=== PATIENT | male | born 1980 | race Caucasian/White ===

== ENCOUNTER 2021-12-08 15:20 | Inpatient (IN) | payer OTHER ==
[~2021-12-08] VITALS: Ht 177.8 cm; Wt 77.4 kg
[2021-12-08] MEDS ORDERED: ASPIRIN 325 MG TABLET PO ONE (15:45)
[2021-12-08] MEDS ORDERED: MORPHINE SULFATE 4 MG/ML INJ. IV/SQ PRN (15:45)
[2021-12-08] MEDS ORDERED: NITROGLYCERIN SUBLINGUAL 0.4 MG BOTTLE OF 25. SL PRN ×2 (15:45→19:00)
--- NOTE | 2021-12-08 15:48 | PHYS DOC ---
Past Medical History Past Medical History: High Cholesterol, Hypertension, TN Past Surgical History: Tonsillectomy Additional Past Surgical Histo: CARDIAC CATH Smoking Status: Former Smoker Alcohol Use: None General Adult EDM: Chief Complaint: CHEST PAIN HPI: HPI: Patient is a 41 year old male with history of TN, no stents, hypertension, high cholesterol, HTN presenting to the ED today from [facility] with cra officer complaining of 7 out of 10 sharp intermittent left- sided sharp pain that began at 1145 this morning. Patient is also complaining of dizziness and lightheadedness with the chest pain. Denies anything specifically exacerbating or relieving the pain. Review of Systems: Review of Systems: Constitutional: Denies fever or chills. [] Eyes: Denies change in visual acuity. [] HENT: Denies nasal congestion or sore throat. [] Respiratory: Denies cough or shortness of breath. [] Cardiovascular: Reports left-sided chest pain GI: Denies abdominal pain, nausea, vomiting, bloody stools or diarrhea. [] : Denies dysuria. [] Musculoskeletal: Denies back pain or joint pain. [] Integument: Denies rash. [] Neurologic: Reports dizziness, lightheadedness denies headache, focal weakness or sensory changes. [] [] Psychiatric: Denies depression or anxiety. [] Heart Score: C/O Chest Pain: Yes HEART Score for Chest Pain: HEART Score for Chest Pain Response (Comments) Value History Slighlty/Non-Suspicious 0 ECG Normal 0 Age < 45 0 Risk Factors >3 Risk Factors or Hx CAD 2 Troponin < Normal Limit 0 Total 2 Risk Factors: Risk Factors: DM, Current or recent (<one month) smoker, HTN, HLP, family history of CAD, obesity. Risk Scores: Score 0 - 3: 2.5% MACE over next 6 weeks - Discharge Home Score 4 - 6: 20.3% MACE over next 6 weeks - Admit for Clinical Observation Score 7 - 10: 72.7% MACE over next 6 weeks - Early Invasive Strategies Current Medications: Current Medications Medications (Trade) Dose Ordered Sig/Dorinda Start Time Stop Time Status Last Admin Dose Admin Aspirin (Sheila Aspirin) 325 mg 1X ONCE 12/08/21 15:45 12/08/21 15:46 DC Morphine Sulfate (Morphine Sulfate) 4 mg PRN Q15MIN PRN 12/08/21 15:45 12/09/21 15:44 Nitroglycerin (Nitrostat) 0.4 mg PRN Q5MIN PRN 12/08/21 15:45 12/09/21 15:44 Allergies: Allergies: Allergies Coded Allergies Type Severity Reaction Last Updated Verified Penicillins Allergy Intermediate UNKNOWN 12/08/21 Yes Physical Exam: PE: Constitutional: Well developed, well nourished, no acute distress, non-toxic appearance. [] HENT: Normocephalic, atraumatic, bilateral external ears normal, oropharynx moist, no oral exudates, nose normal. [] Eyes: PERRLA, EOMI, conjunctiva normal, no discharge. [] Neck: Normal range of motion, no tenderness, supple, no stridor. [] Cardiovascular:Heart rate regular rhythm, no murmur [] Lungs & Thorax: Bilateral breath sounds clear to auscultation [] Abdomen: Bowel sounds normal, soft, no tenderness, no masses, no pulsatile masses. [] Skin: Warm, dry, no erythema, no rash. [] Back: No tenderness, no CVA tenderness. [] Extremities: No tenderness, no cyanosis, no clubbing, ROM intact, no edema. [] Neurologic: Alert and oriented X 3, normal motor function, normal sensory function, no focal deficits noted. [] Psychologic: Affect normal, judgement normal, mood normal. [] Current Patient Data: Vital Signs: Vital Signs Date Time Temp Pulse Resp B/P (MAP) Pulse Ox O2 Delivery O2 Flow Rate FiO2 12/08/21 15:20 98.6 74 19 138/85 (102) 100 Room Air 98.6 EKG: EK interpreted by Dr. Linton sinus rhythm heart rate 73 no STEMI [] Radiology/Procedures: Radiology/Procedures: []PROCEDURE: PORTABLE CHEST 1V AP chest. HISTORY: Chest pain AP view was taken of the chest. Lungs are clear. Heart is normal in size. There is no pleural effusion. IMPRESSION: 1. No acute chest disease. Electronically signed by: Canelo Cooper MD (12/08/2021 4:04 PM) [id number] DICTATED and SIGNED BY: CANELO COOPER MD DATE: 12/08/21 2260 Course & Med Decision Making: Course & Med Decision Making Pertinent Labs and Imaging studies reviewed. (See chart for details) This a 41-year-old male patient presented to the ED today with complaints of left-sided chest pain, dizziness and lightheadedness that began at 1145 this morning. EKG is negative, initial high-sensitivity troponin is negative, CBC CMP chest x- ray negative. UA negative. Spoke to Dr. Nichols who accepted patient for admission, routine consult placed for cardiology Jonny Disclaimer: Jonny Disclaimer: This electronic medical record was generated, in whole or in part, using a voice recognition dictation system. Departure Departure Impression: Primary Impression: Chest pain Qualified Codes: R07.9 - Chest pain, unspecified Disposition: ADMITTED INPATIENT Condition: STABLE BHAKTI JUÁREZ VOCAL ARTIST Dec 08, 2021 15:48
--- NOTE | 2021-12-08 16:06 | RAD ---
AP chest. HISTORY: Chest pain AP view was taken of the chest. Lungs are clear. Heart is normal in size. There is no pleural effusio n. IMPRESSION: 1. No acute chest disease. Electronically signed by: Canelo Cooper MD (12/08/2021 4:04 PM) [id number]
[2021-12-08 16:12] LABS: BASO # 0.1 x10^3/uL (0.0-0.2); BASO % 1 % (0-3); EOS # 0.3 x10^3/uL (0.0-0.7); EOS % 4 % (0-3); HEMATOCRIT 41.6 % (39.0-53.0); LYMPH # 2.3 x10^3/uL (1.0-4.8); LYMPH % 29 % (24-48); MEAN CORPUSCULAR HEMOGLOBIN 32 pg (25-35); MEAN CORPUSCULAR HGB CONC 34 g/dL (31-37); MEAN CORPUSCULAR VOLUME 93 fL (79-100); MONO # 0.9 x10^3/uL (0.0-1.1); MONO % 11 % (0-9); NEUT # 4.3 x10^3/uL (1.8-7.7); NEUT % 55 % (31-73); PLATELET COUNT 229 x10^3/uL (140-400); RED BLOOD COUNT 4.46 x10^6/uL (4.30-5.70); RED CELL DISTRIBUTION WIDTH 13.1 % (11.5-14.5); WHITE BLOOD COUNT 7.9 x10^3/uL (4.0-11.0)
[2021-12-08 16:23] LABS: CALCIUM 9.2 mg/dL (8.5-10.1); CREATININE 0.9 mg/dL (0.7-1.3); GFR 92.5; POTASSIUM 4.1 mmol/L (3.5-5.1)
[2021-12-08 16:30] LABS: ALBUMIN 4.6 g/dL (3.4-5.0); ALBUMIN/GLOBULIN RATIO 1.5 (1.0-1.7); MAGNESIUM 1.8 mg/dL (1.8-2.4); TOTAL BILIRUBIN 0.5 mg/dL (0.2-1.0); TOTAL PROTEIN 7.7 g/dL (6.4-8.2)
[2021-12-08 17:32] LABS: BACTERIA,URINE 0 /HPF (0-FEW); RBC,URINE 0 /HPF (0-2); WBC,URINE 0 /HPF (0-4)
[2021-12-08] MEDS ORDERED: ONDANSETRON PF 4 MG/2 ML VIAL. IVP PRN (19:00)
[2021-12-08] MEDS ORDERED: MORPHINE SULFATE 4 MG/ML INJ. IVP PRN (19:00)
[2021-12-08] MEDS ORDERED: ACETAMINOPHEN 325 MG TABLET. PO PRN (19:00)
--- NOTE | 2021-12-08 19:46 | HP ---
DATE OF SERVICE: 12/08/2021 ADMIT DATE: 12/08/2021 CHIEF COMPLAINT: Chest pain. HISTORY OF PRESENT ILLNESS: The patient is a pleasant 41-year-old male who presents to the ER with chest pain. He has been short of breath. He has had some lightheadedness. He states he has 2 old heart attacks, but denies having any stents. He was catheterized once in the past, but did not have a cardiac stent. He states he also had another heart attack in 10/2018. I discussed the case with ER physician. We are going to admit the patient and consult Cardiology. PAST MEDICAL HISTORY: Myocardial infarction, CAD, hypertension, hyperlipidemia, tonsillectomy, cardiac catheterization, but no stents, previous tobacco abuse. ALLERGIES: PENICILLIN. FAMILY HISTORY: Diabetes. SOCIAL HISTORY: Does not drink or take drugs. He smokes. 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 He is currently in [place] the [place] 4 years. States he gets out in 8 months. MEDICATIONS: Reviewed, please refer to the MRAD. REVIEW OF SYSTEMS: GENERAL: No history of weight change, weakness or fevers. SKIN: No bruising, hair changes or rashes. EYES: No blurred, double or loss of vision. NOSE AND THROAT: No history of nosebleeds, hoarseness or sore throat. HEART: He complains of chest pain. LUNGS: Denies cough, hemoptysis, wheezing or shortness of breath. GASTROINTESTINAL: Denies changes in appetite, nausea, vomiting, diarrhea or constipation. GENITOURINARY: No history of frequency, urgency, hesitancy or nocturia. NEUROLOGIC: Denies history of numbness, tingling, tremor or weakness. PSYCHIATRIC: No history of panic, anxiety or depression. ENDOCRINE: No history of heat or cold intolerance, polyuria or polydipsia. EXTREMITIES: Denies muscle weakness, joint pain, pain on walking or stiffness. PHYSICAL EXAMINATION: VITALS: Within normal limits and are stable. GENERAL: No apparent distress. Alert and oriented. HEENT: Normal cephalic atraumatic, external auditory canals are patent EYES: Extraocular muscles are intact, pupils are equally round and reactive to light and accommodation MUSCULOSKELETAL: Well developed, well nourished, good range of motion ENDOCRINE: No thyromegaly was palpated LYMPHATICS: No cervical chain or axillary nodes were noted HEMATOPOIETIC: No bruising NECK: Supple, no JVD, no thyromegaly was noted. LUNGS: Clear to auscultation in all lung gunderson without rhonchi or wheezing. HEART: RRR, S1, S2 present. Peripheral pulses intact, no obvious murmurs were noted. ABDOMEN: Soft, nontender. Positive bowel sounds no organomegaly, normal bowel sounds. EXTREMITIES: Without any cyanosis, clubbing, or edema. Pedal pulses intact, Homans sign is negative. NEUROLOGIC: Normal speech, normal tone. A and O x 3, moves all extremities, no obvious focal deficits. PSYCHIATRIC: Normal affect, normal mood. Stable. SKIN: No ulcerations or rashes, good skin turgor, no jaundice. VASCULAR: Good capillary refill, neurovascular bundle appears to be intact. LABORATORY DATA: Troponin is 5. ASSESSMENT AND PLAN: Chest pain in a middle-aged male who states he has previous coronary artery disease. He has been admitted. We will check serial enzymes, serial EKGs. Consult Cardiology. Cardiac monitoring, home meds, DVT prophylaxis. Full code. KELLY/KATRIN/[facility] [place] DR: KELLY/garcía TID: [id number]
[2021-12-08 22:10] VITALS: BP 155/80
[2021-12-09] MEDS ORDERED: LISI20TA18 PO (00:52)
[2021-12-09] MEDS ORDERED: CARV6.2511 PO (00:52)
[2021-12-09] MEDS ORDERED: MAGN100T6 PO (00:52)
[2021-12-09] MEDS ORDERED: NAPR-514 PO (00:52)
[2021-12-09] MEDS ORDERED: ASPI-630 PO (00:52)
[2021-12-09] MEDS ORDERED: CALC200T3 PO (00:52)
[2021-12-09] MEDS ORDERED: ATOR20TA58 PO (00:52)
[2021-12-09 02:24] LABS: BASO # 0.1 x10^3/uL (0.0-0.2); BASO % 1 % (0-3); EOS # 0.4 x10^3/uL (0.0-0.7); EOS % 5 % (0-3); HEMOGLOBIN 13.7 g/dL (13.0-17.5); LYMPH # 2.5 x10^3/uL (1.0-4.8); LYMPH % 35 % (24-48); MEAN CORPUSCULAR HEMOGLOBIN 32 pg (25-35); MEAN CORPUSCULAR HGB CONC 33 g/dL (31-37); MEAN CORPUSCULAR VOLUME 95 fL (79-100); MONO # 0.8 x10^3/uL (0.0-1.1); MONO % 11 % (0-9); NEUT # 3.5 x10^3/uL (1.8-7.7); NEUT % 49 % (31-73); PLATELET COUNT 218 x10^3/uL (140-400); RED BLOOD COUNT 4.34 x10^6/uL (4.30-5.70); RED CELL DISTRIBUTION WIDTH 12.7 % (11.5-14.5); WHITE BLOOD COUNT 7.3 x10^3/uL (4.0-11.0)
[2021-12-09 02:50] VITALS: BP 112/63
[2021-12-09 02:50] LABS: CALCIUM 9.4 mg/dL (8.5-10.1); CREATININE 0.8 mg/dL (0.7-1.3); POTASSIUM 4.5 mmol/L (3.5-5.1)
--- NOTE | 2021-12-09 06:40 | NUR ---
Just notified 's answering service about Consult
[2021-12-09 07:00] VITALS: BP 127/70
--- NOTE | 2021-12-09 09:27 | PDOC2 ---
CONSULT Date of Consult Date of Consult DATE: 12/09/21 TIME: 09:27 Reason for Consult Reason for Consult: Chest pain Referring Physician Referring Physician: Dr. Nichols Identification/Chief Complaint Chief Complaint Chest pain Source Source: Chart review, Patient History of Present Illness Reason for Visit: 41-year-old male inmate of [facility] presented complaining of left-sided chest pain that he described as sharp in nature, 7/10 severity that started at 11 AM yesterday. He denied any association with exertion or food intake. He also denied any orthopnea/PND, palpitations or syncope. He stated that he has been under a lot of stress due to his personal situation and family issues. He apparently was told he had heart attacks twice but cardiac catheterization in 2018 in [facility] did not show any significant coronary artery stenosis needing intervention. Past Medical History Past Medical History Myocardial infarction in the past without any PCI/stent Hypertension Hyperlipidemia Past Surgical History Past Surgical History Tonsillectomy Family History Family History Positive for premature coronary artery disease Social History Social History Quit smoking several years ago and denied any alcohol or drug use Current Problem List Problem List Problems Medical Problems: (1) Chest pain Status: Acute Current Medications Current Medications Current Medications Aspirin (Sheila Aspirin) 325 mg 1X ONCE PO Last administered on 12/08/21at 15:52; Start 12/08/21 at 15:45; Stop 12/08/21 at 15:46; Status DC Nitroglycerin (Nitrostat) 0.4 mg PRN Q5MIN PRN SL CP RATING > 1/10 Last administered on 12/08/21at 16:02; Start 12/08/21 at 15:45; Stop 12/08/21 at 19:00; Status DC Morphine Sulfate (Morphine Sulfate) 4 mg PRN Q15MIN PRN IV/SQ PAIN GREATER THAN 3/10; Start 12/08/21 at 15:45; Stop 12/08/21 at 18:59; Status DC Ondansetron HCl (Zofran) 4 mg PRN Q8HRS PRN IVP NAUSEA/VOMITING; Start 12/08/21 at 19:00; Stop 12/09/21 at 18:59 Morphine Sulfate (Morphine Sulfate) 4 mg PRN Q2HR PRN IVP PAIN; Start 12/08/21 at 19:00; Stop 12/09/21 at 18:59 Acetaminophen (Tylenol) 650 mg PRN Q4HRS PRN PO FEVER > 100.3'F; Start 12/08/21 at 19:00; Stop 12/09/21 at 18:59 Nitroglycerin (Nitrostat) 0.4 mg PRN Q5MIN PRN SL CHEST PAIN; Start 12/08/21 at 19:00; Stop 12/09/21 at 18:59 Active Scripts Active Reported Magnesium Citrate 100 Mg Tablet 400 Mg PO QHS Aspirin 81 Mg Tab.chew 1 Tab PO DAILY Carvedilol (Carvedilol) 6.25 Mg Tablet 6.25 Mg PO DAILY Lisinopril 20 Mg Tablet 1 Tab PO DAILY Tums (Calcium Carbonate) 200 Mg Tab.chew 400 Mg PO PRN BID PRN Atorvastatin Calcium 20 Mg Tablet 20 Mg PO HS Naproxen 500 Mg Tablet 500 Mg PO PRN BID PRN Allergies Allergies: Coded Allergies: Penicillins (Verified Allergy, Intermediate, 12/09/21) ROS PSYCHOLOGICAL ROS: No: Hallucinations Eyes: No Loss of vision HEENT: No: Epistaxis Respiratory: No: Hemoptysis Cardiovascular: yes Chest Pain Gastrointestinal: No Vomiting, No Diarrhea Genitourinary: No Hematuria Neurological: No Seizures Skin: No Rash Physical Exam General: Alert, Oriented X3 HEENT: Atraumatic Lungs: Clear to auscultation Heart: Regular rate Abdomen: Soft, No tenderness Extremities: No edema Neuro: Normal speech Vitals VITALS Vital Signs Date Time Temp Pulse Resp B/P (MAP) Pulse Ox O2 Delivery O2 Flow Rate FiO2 12/09/21 07:00 97.7 57 19 127/70 (89) 99 Room Air 97.7 Labs Labs Laboratory Tests Test 12/08/21 15:50 12/08/21 17:00 12/08/21 19:10 12/09/21 02:00 White Blood Count 7.9 x10^3/uL (4.0-11.0) 7.3 x10^3/uL (4.0-11.0) Red Blood Count 4.46 x10^6/uL (4.30-5.70) 4.34 x10^6/uL (4.30-5.70) Hemoglobin 14.0 g/dL (13.0-17.5) 13.7 g/dL (13.0-17.5) Hematocrit 41.6 % (39.0-53.0) 41.0 % (39.0-53.0) Mean Corpuscular Volume 93 fL (79-100) 95 fL (79-100) Mean Corpuscular Hemoglobin 32 pg (25-35) 32 pg (25-35) Mean Corpuscular Hemoglobin Concent 34 g/dL (31-37) 33 g/dL (31-37) Red Cell Distribution Width 13.1 % (11.5-14.5) 12.7 % (11.5-14.5) Platelet Count 229 x10^3/uL (140-400) 218 x10^3/uL (140-400) Neutrophils (%) (Auto) 55 % (31-73) 49 % (31-73) Lymphocytes (%) (Auto) 29 % (24-48) 35 % (24-48) Monocytes (%) (Auto) 11 % (0-9) 11 % (0-9) Eosinophils (%) (Auto) 4 % (0-3) 5 % (0-3) Basophils (%) (Auto) 1 % (0-3) 1 % (0-3) Neutrophils # (Auto) 4.3 x10^3/uL (1.8-7.7) 3.5 x10^3/uL (1.8-7.7) Lymphocytes # (Auto) 2.3 x10^3/uL (1.0-4.8) 2.5 x10^3/uL (1.0-4.8) Monocytes # (Auto) 0.9 x10^3/uL (0.0-1.1) 0.8 x10^3/uL (0.0-1.1) Eosinophils # (Auto) 0.3 x10^3/uL (0.0-0.7) 0.4 x10^3/uL (0.0-0.7) Basophils # (Auto) 0.1 x10^3/uL (0.0-0.2) 0.1 x10^3/uL (0.0-0.2) D-Dimer (Mercedez) < 0.27 ug/mlFEU Sodium Level 139 mmol/L (136-145) 140 mmol/L (136-145) Potassium Level 4.1 mmol/L (3.5-5.1) 4.5 mmol/L (3.5-5.1) Chloride Level 104 mmol/L (98-107) 104 mmol/L (98-107) Carbon Dioxide Level 27 mmol/L (21-32) 29 mmol/L (21-32) Anion Gap 8 (6-14) 7 (6-14) Blood Urea Nitrogen 15 mg/dL (8-26) 14 mg/dL (8-26) Creatinine 0.9 mg/dL (0.7-1.3) 0.8 mg/dL (0.7-1.3) Estimated GFR (Cockcroft-Gault) 92.5 106.0 BUN/Creatinine Ratio 17 (6-20) Glucose Level 80 mg/dL (70-99) 81 mg/dL (70-99) Calcium Level 9.2 mg/dL (8.5-10.1) 9.4 mg/dL (8.5-10.1) Magnesium Level 1.8 mg/dL (1.8-2.4) Total Bilirubin 0.5 mg/dL (0.2-1.0) Aspartate Amino Transf (AST/SGOT) 16 U/L (15-37) Alanine Aminotransferase (ALT/SGPT) 25 U/L (16-63) Alkaline Phosphatase 54 U/L (46-116) Troponin I High Sensitivity 5 ng/L (4-75) 5 ng/L (4-75) 5 ng/L (4-75) ZR-Zvh-G-Type Natriuretic Peptide 40 pg/mL (0-124) Total Protein 7.7 g/dL (6.4-8.2) Albumin 4.6 g/dL (3.4-5.0) Albumin/Globulin Ratio 1.5 (1.0-1.7) Urine Collection Type Unknown Urine Color (Auto) Light yellow Urine Turbidity Clear Urine pH (Auto) 6.5 (<5.0-8.0) Urine Specific [place] 1.013 (1.000-1.030) Urine Protein (Auto) Negative mg/dL (Negative) Urine Glucose (Auto)(UA) Negative mg/dL (Negative) Urine Ketones (Auto) Trace mg/dL (Negative) Urine Blood (Auto) Negative (Negative) Urine Nitrite Negative (Negative) Urine Bilirubin (Auto) Negative (Negative) Urine Urobilinogen (Auto) Normal mg/dL (Normal) Urine Leukocyte Esterase (Auto) Negative (Negative) Urine RBC 0 /HPF (0-2) Urine WBC 0 /HPF (0-4) Urine Bacteria 0 /HPF (0-FEW) Laboratory Tests Test 12/08/21 15:50 12/08/21 17:00 12/08/21 19:10 12/09/21 02:00 White Blood Count 7.9 x10^3/uL (4.0-11.0) 7.3 x10^3/uL (4.0-11.0) Red Blood Count 4.46 x10^6/uL (4.30-5.70) 4.34 x10^6/uL (4.30-5.70) Hemoglobin 14.0 g/dL (13.0-17.5) 13.7 g/dL (13.0-17.5) Hematocrit 41.6 % (39.0-53.0) 41.0 % (39.0-53.0) Mean Corpuscular Volume 93 fL (79-100) 95 fL (79-100) Mean Corpuscular Hemoglobin 32 pg (25-35) 32 pg (25-35) Mean Corpuscular Hemoglobin Concent 34 g/dL (31-37) 33 g/dL (31-37) Red Cell Distribution Width 13.1 % (11.5-14.5) 12.7 % (11.5-14.5) Platelet Count 229 x10^3/uL (140-400) 218 x10^3/uL (140-400) Neutrophils (%) (Auto) 55 % (31-73) 49 % (31-73) Lymphocytes (%) (Auto) 29 % (24-48) 35 % (24-48) Monocytes (%) (Auto) 11 % (0-9) 11 % (0-9) Eosinophils (%) (Auto) 4 % (0-3) 5 % (0-3) Basophils (%) (Auto) 1 % (0-3) 1 % (0-3) Neutrophils # (Auto) 4.3 x10^3/uL (1.8-7.7) 3.5 x10^3/uL (1.8-7.7) Lymphocytes # (Auto) 2.3 x10^3/uL (1.0-4.8) 2.5 x10^3/uL (1.0-4.8) Monocytes # (Auto) 0.9 x10^3/uL (0.0-1.1) 0.8 x10^3/uL (0.0-1.1) Eosinophils # (Auto) 0.3 x10^3/uL (0.0-0.7) 0.4 x10^3/uL (0.0-0.7) Basophils # (Auto) 0.1 x10^3/uL (0.0-0.2) 0.1 x10^3/uL (0.0-0.2) D-Dimer (Mercedez) < 0.27 ug/mlFEU Sodium Level 139 mmol/L (136-145) 140 mmol/L (136-145) Potassium Level 4.1 mmol/L (3.5-5.1) 4.5 mmol/L (3.5-5.1) Chloride Level 104 mmol/L (98-107) 104 mmol/L (98-107) Carbon Dioxide Level 27 mmol/L (21-32) 29 mmol/L (21-32) Anion Gap 8 (6-14) 7 (6-14) Blood Urea Nitrogen 15 mg/dL (8-26) 14 mg/dL (8-26) Creatinine 0.9 mg/dL (0.7-1.3) 0.8 mg/dL (0.7-1.3) Estimated GFR (Cockcroft-Gault) 92.5 106.0 BUN/Creatinine Ratio 17 (6-20) Glucose Level 80 mg/dL (70-99) 81 mg/dL (70-99) Calcium Level 9.2 mg/dL (8.5-10.1) 9.4 mg/dL (8.5-10.1) Magnesium Level 1.8 mg/dL (1.8-2.4) Total Bilirubin 0.5 mg/dL (0.2-1.0) Aspartate Amino Transf (AST/SGOT) 16 U/L (15-37) Alanine Aminotransferase (ALT/SGPT) 25 U/L (16-63) Alkaline Phosphatase 54 U/L (46-116) Troponin I High Sensitivity 5 ng/L (4-75) 5 ng/L (4-75) 5 ng/L (4-75) MK-Yje-T-Type Natriuretic Peptide 40 pg/mL (0-124) Total Protein 7.7 g/dL (6.4-8.2) Albumin 4.6 g/dL (3.4-5.0) Albumin/Globulin Ratio 1.5 (1.0-1.7) Urine Collection Type Unknown Urine Color (Auto) Light yellow Urine Turbidity Clear Urine pH (Auto) 6.5 (<5.0-8.0) Urine Specific [place] 1.013 (1.000-1.030) Urine Protein (Auto) Negative mg/dL (Negative) Urine Glucose (Auto)(UA) Negative mg/dL (Negative) Urine Ketones (Auto) Trace mg/dL (Negative) Urine Blood (Auto) Negative (Negative) Urine Nitrite Negative (Negative) Urine Bilirubin (Auto) Negative (Negative) Urine Urobilinogen (Auto) Normal mg/dL (Normal) Urine Leukocyte Esterase (Auto) Negative (Negative) Urine RBC 0 /HPF (0-2) Urine WBC 0 /HPF (0-4) Urine Bacteria 0 /HPF (0-FEW) Assessment/Plan Assessment/Plan 1. Chest pain with atypical features: Myocardial infarction has been ruled out. Patient stated that he had cardiac catheterization in 2018 and was told he did not have any significant stenosis. Check 2D echo to assess LV systolic function. Ischemic evaluation could be considered as an outpatient. 2. Hypertension: Well-controlled 3. Hyperlipidemia: Continue statin therapy Thank you for your consultation ROCHELLE CHILDERS MD Dec 09, 2021 09:27
[2021-12-09] MEDS ORDERED: DIPH25CA58 PO (10:27)
--- NOTE | 2021-12-09 10:30 | PDOC3 ---
Discharge Summary Visit Information Date of Admission: Dec 08, 2021 Date of Discharge: Dec 09, 2021 Final Diagnosis angina, ACS ruled out CAD, prior cath htn lipids insomnia Problems Medical Problems: (1) Chest pain Status: Acute Brief Hospital Course Allergies Allergies Coded Allergies Type Severity Reaction Last Updated Verified Penicillins Allergy Intermediate 12/09/21 Yes Vital Signs Vital Signs Date Time Temp Pulse Resp B/P (MAP) Pulse Ox O2 Delivery O2 Flow Rate FiO2 12/09/21 08:00 Room Air 12/09/21 07:00 97.7 57 19 127/70 (89) 99 97.7 Lab Results Laboratory Tests Test 12/08/21 15:50 12/08/21 17:00 12/08/21 19:10 12/09/21 02:00 White Blood Count 7.9 x10^3/uL (4.0-11.0) 7.3 x10^3/uL (4.0-11.0) Red Blood Count 4.46 x10^6/uL (4.30-5.70) 4.34 x10^6/uL (4.30-5.70) Hemoglobin 14.0 g/dL (13.0-17.5) 13.7 g/dL (13.0-17.5) Hematocrit 41.6 % (39.0-53.0) 41.0 % (39.0-53.0) Mean Corpuscular Volume 93 fL (79-100) 95 fL (79-100) Mean Corpuscular Hemoglobin 32 pg (25-35) 32 pg (25-35) Mean Corpuscular Hemoglobin Concent 34 g/dL (31-37) 33 g/dL (31-37) Red Cell Distribution Width 13.1 % (11.5-14.5) 12.7 % (11.5-14.5) Platelet Count 229 x10^3/uL (140-400) 218 x10^3/uL (140-400) Neutrophils (%) (Auto) 55 % (31-73) 49 % (31-73) Lymphocytes (%) (Auto) 29 % (24-48) 35 % (24-48) Monocytes (%) (Auto) 11 % (0-9) 11 % (0-9) Eosinophils (%) (Auto) 4 % (0-3) 5 % (0-3) Basophils (%) (Auto) 1 % (0-3) 1 % (0-3) Neutrophils # (Auto) 4.3 x10^3/uL (1.8-7.7) 3.5 x10^3/uL (1.8-7.7) Lymphocytes # (Auto) 2.3 x10^3/uL (1.0-4.8) 2.5 x10^3/uL (1.0-4.8) Monocytes # (Auto) 0.9 x10^3/uL (0.0-1.1) 0.8 x10^3/uL (0.0-1.1) Eosinophils # (Auto) 0.3 x10^3/uL (0.0-0.7) 0.4 x10^3/uL (0.0-0.7) Basophils # (Auto) 0.1 x10^3/uL (0.0-0.2) 0.1 x10^3/uL (0.0-0.2) D-Dimer (Mercedez) < 0.27 ug/mlFEU Sodium Level 139 mmol/L (136-145) 140 mmol/L (136-145) Potassium Level 4.1 mmol/L (3.5-5.1) 4.5 mmol/L (3.5-5.1) Chloride Level 104 mmol/L (98-107) 104 mmol/L (98-107) Carbon Dioxide Level 27 mmol/L (21-32) 29 mmol/L (21-32) Anion Gap 8 (6-14) 7 (6-14) Blood Urea Nitrogen 15 mg/dL (8-26) 14 mg/dL (8-26) Creatinine 0.9 mg/dL (0.7-1.3) 0.8 mg/dL (0.7-1.3) Estimated GFR (Cockcroft-Gault) 92.5 106.0 BUN/Creatinine Ratio 17 (6-20) Glucose Level 80 mg/dL (70-99) 81 mg/dL (70-99) Calcium Level 9.2 mg/dL (8.5-10.1) 9.4 mg/dL (8.5-10.1) Magnesium Level 1.8 mg/dL (1.8-2.4) Total Bilirubin 0.5 mg/dL (0.2-1.0) Aspartate Amino Transf (AST/SGOT) 16 U/L (15-37) Alanine Aminotransferase (ALT/SGPT) 25 U/L (16-63) Alkaline Phosphatase 54 U/L (46-116) Troponin I High Sensitivity 5 ng/L (4-75) 5 ng/L (4-75) 5 ng/L (4-75) MA-Wac-T-Type Natriuretic Peptide 40 pg/mL (0-124) Total Protein 7.7 g/dL (6.4-8.2) Albumin 4.6 g/dL (3.4-5.0) Albumin/Globulin Ratio 1.5 (1.0-1.7) Urine Collection Type Unknown Urine Color (Auto) Light yellow Urine Turbidity Clear Urine pH (Auto) 6.5 (<5.0-8.0) Urine Specific [place] 1.013 (1.000-1.030) Urine Protein (Auto) Negative mg/dL (Negative) Urine Glucose (Auto)(UA) Negative mg/dL (Negative) Urine Ketones (Auto) Trace mg/dL (Negative) Urine Blood (Auto) Negative (Negative) Urine Nitrite Negative (Negative) Urine Bilirubin (Auto) Negative (Negative) Urine Urobilinogen (Auto) Normal mg/dL (Normal) Urine Leukocyte Esterase (Auto) Negative (Negative) Urine RBC 0 /HPF (0-2) Urine WBC 0 /HPF (0-4) Urine Bacteria 0 /HPF (0-FEW) Laboratory Tests Test 12/08/21 15:50 12/08/21 17:00 12/08/21 19:10 12/09/21 02:00 White Blood Count 7.9 x10^3/uL (4.0-11.0) 7.3 x10^3/uL (4.0-11.0) Red Blood Count 4.46 x10^6/uL (4.30-5.70) 4.34 x10^6/uL (4.30-5.70) Hemoglobin 14.0 g/dL (13.0-17.5) 13.7 g/dL (13.0-17.5) Hematocrit 41.6 % (39.0-53.0) 41.0 % (39.0-53.0) Mean Corpuscular Volume 93 fL (79-100) 95 fL (79-100) Mean Corpuscular Hemoglobin 32 pg (25-35) 32 pg (25-35) Mean Corpuscular Hemoglobin Concent 34 g/dL (31-37) 33 g/dL (31-37) Red Cell Distribution Width 13.1 % (11.5-14.5) 12.7 % (11.5-14.5) Platelet Count 229 x10^3/uL (140-400) 218 x10^3/uL (140-400) Neutrophils (%) (Auto) 55 % (31-73) 49 % (31-73) Lymphocytes (%) (Auto) 29 % (24-48) 35 % (24-48) Monocytes (%) (Auto) 11 % (0-9) 11 % (0-9) Eosinophils (%) (Auto) 4 % (0-3) 5 % (0-3) Basophils (%) (Auto) 1 % (0-3) 1 % (0-3) Neutrophils # (Auto) 4.3 x10^3/uL (1.8-7.7) 3.5 x10^3/uL (1.8-7.7) Lymphocytes # (Auto) 2.3 x10^3/uL (1.0-4.8) 2.5 x10^3/uL (1.0-4.8) Monocytes # (Auto) 0.9 x10^3/uL (0.0-1.1) 0.8 x10^3/uL (0.0-1.1) Eosinophils # (Auto) 0.3 x10^3/uL (0.0-0.7) 0.4 x10^3/uL (0.0-0.7) Basophils # (Auto) 0.1 x10^3/uL (0.0-0.2) 0.1 x10^3/uL (0.0-0.2) D-Dimer (Mercedez) < 0.27 ug/mlFEU Sodium Level 139 mmol/L (136-145) 140 mmol/L (136-145) Potassium Level 4.1 mmol/L (3.5-5.1) 4.5 mmol/L (3.5-5.1) Chloride Level 104 mmol/L (98-107) 104 mmol/L (98-107) Carbon Dioxide Level 27 mmol/L (21-32) 29 mmol/L (21-32) Anion Gap 8 (6-14) 7 (6-14) Blood Urea Nitrogen 15 mg/dL (8-26) 14 mg/dL (8-26) Creatinine 0.9 mg/dL (0.7-1.3) 0.8 mg/dL (0.7-1.3) Estimated GFR (Cockcroft-Gault) 92.5 106.0 BUN/Creatinine Ratio 17 (6-20) Glucose Level 80 mg/dL (70-99) 81 mg/dL (70-99) Calcium Level 9.2 mg/dL (8.5-10.1) 9.4 mg/dL (8.5-10.1) Magnesium Level 1.8 mg/dL (1.8-2.4) Total Bilirubin 0.5 mg/dL (0.2-1.0) Aspartate Amino Transf (AST/SGOT) 16 U/L (15-37) Alanine Aminotransferase (ALT/SGPT) 25 U/L (16-63) Alkaline Phosphatase 54 U/L (46-116) Troponin I High Sensitivity 5 ng/L (4-75) 5 ng/L (4-75) 5 ng/L (4-75) AC-Nnz-U-Type Natriuretic Peptide 40 pg/mL (0-124) Total Protein 7.7 g/dL (6.4-8.2) Albumin 4.6 g/dL (3.4-5.0) Albumin/Globulin Ratio 1.5 (1.0-1.7) Urine Collection Type Unknown Urine Color (Auto) Light yellow Urine Turbidity Clear Urine pH (Auto) 6.5 (<5.0-8.0) Urine Specific [place] 1.013 (1.000-1.030) Urine Protein (Auto) Negative mg/dL (Negative) Urine Glucose (Auto)(UA) Negative mg/dL (Negative) Urine Ketones (Auto) Trace mg/dL (Negative) Urine Blood (Auto) Negative (Negative) Urine Nitrite Negative (Negative) Urine Bilirubin (Auto) Negative (Negative) Urine Urobilinogen (Auto) Normal mg/dL (Normal) Urine Leukocyte Esterase (Auto) Negative (Negative) Urine RBC 0 /HPF (0-2) Urine WBC 0 /HPF (0-4) Urine Bacteria 0 /HPF (0-FEW) Brief Hospital Course Mr. Paige is a 41 old male, priro CAD< admit with angina, acute chest pain, ACS ruled out, Discharge Information Condition at Discharge: Improved Follow Up: Weeks Disposition/Orders: Other (to long term, [facility], [place]) Scheduled Aspirin (Aspirin) 81 Mg Tab.chew, 1 TAB PO DAILY for prophylaxis, #30 Ref 3 (Reported) Entered as Reported by: GREGORIO ZAMARRIPA on 12/09/2151 Last Action: New Order on 12/09/2151 by GREGORIO ZAMARRIPA Atorvastatin Calcium (Atorvastatin Calcium) 20 Mg Tablet, 20 MG PO HS for FOR CHOLESTEROL, #30 Ref 0 (Reported) Entered as Reported by: GREGORIO ZAMARRIPA on 12/09/2151 Last Action: New Order on 12/09/2151 by GREGORIO ZAMARRIPA Carvedilol (Carvedilol ) 6.25 Mg Tablet, 6.25 MG PO DAILY for CARDIAC, (Reported) Entered as Reported by: GREGORIO ZAMARRIPA on 12/09/2151 Last Action: New Order on 12/09/2151 by GREGORIO ZAMARRIPA Diphenhydramine Hcl (Benadryl) 25 Mg Capsule, 1 CAP PO QHS for sleep for 30 Days, #30 Ref 7 Prescribed by: DWAYNE BEDOYA on 12/09/21 1027 Lisinopril (Lisinopril) 20 Mg Tablet, 1 TAB PO DAILY for HTN, #30 Ref 5 (Reported) Entered as Reported by: GREGORIO ZAMARRIPA on 12/09/2151 Last Action: New Order on 12/09/2151 by GREGORIO ZAMARRIPA Magnesium Citrate (Magnesium Citrate) 100 Mg Tablet, 400 MG PO QHS for ., (Reported) Entered as Reported by: GREGORIO ZAMARRIPA on 12/09/2151 Last Action: New Order on 12/09/2151 by GREGORIO ZAMARRIPA Scheduled PRN Calcium Carbonate (Tums) 200 Mg Tab.chew, 400 MG PO PRN BID PRN for GI SYMPTOMS, (Reported) Entered as Reported by: GREGORIO ZAMARRIPA on 12/09/2151 Last Action: New Order on 12/09/2151 by GREGORIO ZAMARRIPA Naproxen (Naproxen) 500 Mg Tablet, 500 MG PO PRN BID PRN for PAIN, (Reported) Entered as Reported by: GREGORIO ZAMARRIPA on 12/09/2151 Last Action: New Order on 12/09/2151 by GREGORIO ZAMARRIPA Patient Instructions Patient Instructions face to face discussed plan x2 33 minutes total Justicifation of Admission Dx: Justifications for Admission: Justification of Admission Dx: No (obs) DWAYNE BEDOYA MD Dec 09, 2021 10:30
[2021-12-09 11:00] VITALS: BP 143/82
[2021-12-09] MEDS ORDERED: LISINOPRIL 20 MG TABLET PO SCH (11:30)
[2021-12-09] MEDS ORDERED: CARVEDILOL 6.25 MG TABLET. PO SCH (11:30)
[2021-12-09] MEDS ORDERED: ASPIRIN CHEWABLE 81 MG TABLET. PO SCH (11:30)
[2021-12-09 12:05] VITALS: BP 127/70
--- NOTE | 2021-12-09 15:15 | NUR ---
Discharge Note: EUGENIE LORENZANA [facility] Discharge instructions and discharge home medications reviewed with Other facility and a copy given. All questions have been answered and understanding verbalized. The following instructions and handouts were given: chest pain IV discontinued, no complications Patient discharged back to [facility]. all belongings taken with patient. Report given to Cecilia RN at the facility. instructed that patient needs to come back this week for outpatient echo and to follow up with cardiology in 4-6 weeks.
--- NOTE | 2021-12-10 00:54 | EKG ---
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
--- NOTE | 2021-12-10 00:54 | EKG ---
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
== END 2021-12-09 13:15 | DRG 313 ==
LOC: ER 15:20 → EEVIPCON 15:27 → 6 SOUTH 17:57
PROVIDERS: ADMIT Internal Medicine; ATTEND Internal Medicine
DX: R07.89 Other chest pain (principal); E78.00 Pure hypercholesterolemia, unspecified; E78.5 Hyperlipidemia, unspecified; F17.200 Nicotine dependence, unspecified, uncomplicated; G47.00 Insomnia, unspecified; I10 Essential (primary) hypertension; I25.2 Old myocardial infarction; Z82.49 Family history of ischemic heart disease and other diseases of the circulatory system; Z83.3 Family history of diabetes mellitus; Z88.0 Allergy status to penicillin; I25.119 Atherosclerotic heart disease of native coronary artery with unspecified angina pectoris
CPT/HCPCS: 36415; 71045; 80048; 80053; 81001; 83735; 83880; 84484; 85025; 85379; 93005; 99285-25; G0378